=== PATIENT | female | born 1970 | race Caucasian/White ===

== ENCOUNTER 2022-03-22 09:32 | Emergency (ER) | payer OTHER ==
[~2022-03-22] VITALS: Ht 160 cm; Wt 63.5 kg
[~2022-03-22 09:32] MED LIST: HYDROCODON-ACE1 EA10 PO; METOPROLOL SUCC25 MG PO; PERCOCET 7.5-31 EACH PO; SIMVASTATIN20 MG PO; ZOFRAN ODT4 MG SL
[2022-03-22] MEDS ORDERED: DOTTI1 EACH TD (09:46)
[2022-03-22] MEDS ORDERED: PREDNISONE20 MG PO (12:03)
[2022-03-22] MEDS ORDERED: HYDROCODON-ACE1 EA10 PO (12:03)
== END 2022-03-22 12:12 | disposition home or self-care (01) ==
LOC: ED 09:32
DX: M54.16 Radiculopathy, lumbar region (principal); I10 Essential (primary) hypertension; Z87.891 Personal history of nicotine dependence; Z98.1 Arthrodesis status; Z88.5 Allergy status to narcotic agent; Z79.899 Other long term (current) drug therapy
CPT/HCPCS: 72100; J1100; J1885